=== PATIENT | female | born 1955 | race Caucasian/White ===

== ENCOUNTER 2018-10-05 09:53 | Inpatient (IN) | payer OTHER ==
[~2018-10-05] VITALS: Ht 157.5 cm; Wt 56.7 kg
[2018-10-05] VITALS (10 sets, daily range): BP systolic 132–151; BP diastolic 64–82
--- NOTE | 2018-10-05 | NUR ---
RN OPEN NOTES RECEIVED PATIENT AWAKE IN BED WITH FAMILY AT BEDSIDE. A/O X4. NO SIGNS OF DISTRESS OR DISCOMFORT. BREATHING EVEN AND UNLABORED. STATES PAIN 4/10 AND TOLERABLE AT THIS TIME. PATIENT S/P 1 UNIT PRBC BLOOD TRANSFUSION WITH NO SIGNS OF ADVERSE REACTION AT THIS TIME. HAS IV ACCESS IN LAC AND RAC WITH NS INFUSING, NO SIGNS OF REDNESS OR INFILTRATION. HAS F/C INTACT DRAINING CLEAR YELLOW FLUID. BED IN LOW LOCKED POSITION WITH SIDE RAILS X2. CALL LIGHT WITHIN REACH. WILL CONTINUE TO MONITOR. Addendum: 10/06/18 at 0119 by HIRA ENRIQUEZ RN ERROR: WRONG TIME DOCUMENT
--- NOTE | 2018-10-05 10:00 | NUR ---
aaox3, BIBA RA 878 "GLF from work slipped on the floor and now c/o pain on R hip". RR is even and unlabored with nad noted. Skin is warm and dry. Placed on the monitor. Awaiting md for eval.
--- NOTE | 2018-10-05 10:01 | NUR ---
DR CALDWELL AT BEDSIDE
[2018-10-05] MEDS ORDERED: ONDANSETRON HCL/PF 4 MG/2 ML VIAL ONE (10:06)
[2018-10-05] MEDS ORDERED: MORPHINE SULFATE INJ 2 MG/ML DISP.SYRIN ONE (10:06)
[2018-10-05 10:20] LABS: BASOPHILS % (AUTO) 0.2 % (0.0-2.0); EOSINOPHILS % (AUTO) 0.3 % (0.0-6.0); HEMATOCRIT 22 % (33-45); LYMPHOCYTES # (AUTO) 1.8 /CMM (0.8-4.8); LYMPHOCYTES % (AUTO) 16.6 % (20.0-44.0); MEAN CORPUSCULAR HGB CONC 26 g/dl (31.0-36.0); MEAN CORPUSCULAR VOLUME 52 fL (82-100); MONOCYTES # (AUTO) 0.6 /CMM (0.1-1.30); NEUTROPHILS # (AUTO) 8.5 /CMM (1.8-8.9); NEUTROPHILS % (AUTO) 77.9 % (43.0-81.0); PLATELET COUNT (AUTO) 463 /CMM (150-450); RED BLOOD CELL COUNT(AUTO) 4.27 MIL/uL (4.0-5.2)
[2018-10-05 10:22] LABS: HEMOGLOBIN 5.7 g/dL (11.5-14.8)
[2018-10-05 10:24] LABS: CALCIUM, SERUM 8.5 mg/dL (8.5-10.1); CREATININE 0.6 mg/dL (0.6-1.3); POTASSIUM 3.5 mmol/L (3.5-5.1)
[2018-10-05] MEDS ORDERED: ONDANSETRON HCL/PF - ER 4 MG/2 ML VIAL IV ONE (10:30)
[2018-10-05] MEDS ORDERED: MORPHINE SULFATE INJ 2 MG/ML DISP.SYRIN IV ONE (10:30)
[2018-10-05 11:36] LABS: BAND % (MANUAL) 1 % (0.0-5.0); LYMPHOCYTES % (MANUAL) 5 % (16-48); MONOCYTES % (MANUAL) 4 % (0-11.0); NEUTROPHILS % (MANUAL) 90 (42-76)
--- NOTE | 2018-10-05 11:43 | NUR ---
ADMIT TO ROOM 324-2 TELE DX HIP FX, ANEMIA ACCEPTING STEVAN STOUT NP
--- NOTE | 2018-10-05 11:51 | NUR ---
PT SIGNED CONSENT FOR BLOOD TRANSFUSION
[2018-10-05] MEDS ORDERED: MAG HYDROX/AL HYDROX/SIMETH 30 ML UDC PO PRN (12:00)
[2018-10-05] MEDS ORDERED: MAGNESIUM HYDROXIDE 30 ML UDC PO PRN (12:00)
[2018-10-05] MEDS ORDERED: ACETAMINOPHEN 325 MG TABLET PO PRN (12:00)
[2018-10-05] MEDS ORDERED: Z GUARD REMEDY 2 OZ OINT TP PRN (12:00)
[2018-10-05] MEDS ORDERED: ONDANSETRON HCL/PF 4 MG/2 ML VIAL IVP PRN (12:00)
--- NOTE | 2018-10-05 12:01 | NUR ---
REPORT GIVEN TO CHARLES FRANCIS OF TELE UNIT
[2018-10-05 12:18] LABS: IRON, SERUM 7 ug/dl (50-175); TOTAL IRON BINDING CAPACITY 465 ug/dl (250-450)
--- NOTE | 2018-10-05 12:30 | NUR ---
mmi teacheremergency vehicle technician Notes Received patient from ED in stable condition via gurney, Patient currently awake, resting in bed. Semi-Fowlers position, supine. Alert and oriented x3, able to make needs known. No complaints of shortness of breath or chest pain at this time. Respirations even and unlabored on room air, no acute distress noted. External youth nutritional monitor in place: currently sinus tachycardia at 102 bpm. Peripheral IV to the right AC 20 gauge, intact, patent and saline locked. Skin assessment completed, no skin issues identified. NPO as ordered. Updated patient on current plan of care and safety measures. Safety and fall precautions in place: bed in lowest and locked position, side rails up x2, bed alarm on, call light and personal possessions within reach. Oriented patient to room and safety measures, verbalized understanding. Patient currently clean, dry and comfortable. Admission orders received and will be carried out. Personal belongings accounted for at bedside, family to take some personal items home (noted on form). Family present at bedside. Will continue to monitor and intervene as needed.
--- NOTE | 2018-10-05 12:31 | NUR ---
printed circuit boards plasma etcherbuttonhole machine operator Notes Received patient from ED in stable condition via gurney, Patient currently awake, resting in bed. Semi-Fowlers position, supine. Alert and oriented x3, able to make needs known. No complaints of shortness of breath or chest pain at this time. Respirations even and unlabored on room air, no acute distress noted. External telephonic nurse case manager in place: currently sinus tachycardia at 102 bpm. Peripheral IV to the right AC 20 gauge, intact, patent and saline locked. Skin assessment completed, no skin issues identified. NPO as orderded. Updated patient on current plan of care and safety measures. Safety and fall precautions in place: bed in lowest and locked position, side rails up x2, bed alarm on, call light and personal possessions within reach. Oriented patient to room and safety measures, verbalized understanding. Patient currently clean, dry and comfortable. Admission orders received and will be carried out. Personal belongings accounted for at bedside, family to take some personal items home (noted on form). Family present at bedside. Will continue to monitor and intervene as needed.
[2018-10-05] MEDS: MORPHINE SULFATE INJ 2 MG/ML DISP.SYRIN IV PRN ×3 (12:43→22:32)
[2018-10-05 13:05] LABS: FERRITIN 3 ng/mL (8-388)
[2018-10-05] MEDS ORDERED: SOD FERRIC GLUC 125 MG in IV NS 0.9% 100 ML IV SCH ×2 (14:00→21:00)
--- NOTE | 2018-10-05 14:55 | NUR ---
Pre-transfusion vital signs taken. Patient stable. Monitoring accordingly during transfusion. PENNY Canales as second RN verification.
--- NOTE | 2018-10-05 15:56 | NUR ---
Monitoring during PRBC transfusion for adverse reactions. Vital signs stable. No back pain or nausea/vomiting noted. Family present at bedside.
[2018-10-05] MEDS: DOCUSATE SODIUM 100 MG CAPSULE PO SCH (17:00)
[2018-10-05] MEDS: PANTOPRAZOLE 40 MG VIAL IV SCH (18:00)
--- NOTE | 2018-10-05 19:00 | NUR ---
Transfusion completed. 1 unit PRBC's infused with no adverse reactions. Vital signs stable. No acute changes. Will endorse to market research specialist RN for continuity of care.
--- NOTE | 2018-10-05 19:10 | NUR ---
RN OPEN NOTES RECEIVED PATIENT AWAKE IN BED WITH FAMILY AT BEDSIDE. A/O X4. NO SIGNS OF DISTRESS OR DISCOMFORT. BREATHING EVEN AND UNLABORED. STATES PAIN 4/10 AND TOLERABLE AT THIS TIME. PATIENT S/P 1 UNIT PRBC BLOOD TRANSFUSION WITH NO SIGNS OF ADVERSE REACTION AT THIS TIME. HAS IV ACCESS IN LAC AND RAC WITH NS INFUSING, NO SIGNS OF REDNESS OR INFILTRATION. HAS F/C INTACT DRAINING CLEAR YELLOW FLUID. BED IN LOW LOCKED POSITION WITH SIDE RAILS X2. CALL LIGHT WITHIN REACH. WILL CONTINUE TO MONITOR.
--- NOTE | 2018-10-05 22:32 | NUR ---
RN NOTES ADMINISTERED MORPHINE 2MG ORDERED FOR PAIN 8/10 IN R HIP. NO COMPLICATIONS NOTED. WILL CONTINUE TO MONITOR.
[2018-10-06] VITALS (13 sets, daily range): BP systolic 130–152; BP diastolic 64–85
[2018-10-06 06:26] LABS: HEMATOCRIT 26 % (33-45); HEMOGLOBIN 7.4 g/dL (11.5-14.8); LYMPHOCYTES % (AUTO) 5.8 % (20.0-44.0); MEAN CORPUSCULAR HGB CONC 29 g/dl (31.0-36.0); MEAN CORPUSCULAR VOLUME 56 fL (82-100); MONOCYTES # (AUTO) 1.1 /CMM (0.1-1.30); MONOCYTES % (AUTO) 6.3 % (2.0-12.0); NEUTROPHILS # (AUTO) 14.8 /CMM (1.8-8.9); NEUTROPHILS % (AUTO) 87.9 % (43.0-81.0); PLATELET COUNT (AUTO) 393 /CMM (150-450); RED BLOOD CELL COUNT(AUTO) 4.54 MIL/uL (4.0-5.2); WHITE BLOOD COUNT (AUTO) 16.9 K/uL (4.3-11.0)
--- NOTE | 2018-10-06 06:30 | NUR ---
RN CLOSING NOTES PATIENT RESTING IN BED. A/O X4. NO SIGNS OF DISTRESS OR DISCOMFORT. BREATHING EVEN AND UNLABORED. HAS IV ACCESS IN LAC AND RAC WITH NS INFUSING, NO SIGNS OF REDNESS OR INFILTRATION. HAS F/C INTACT DRAINING CLEAR YELLOW FLUID. ALL NEEDS MET. NO SIGNIFICANT CHANGES THROUGH THE NIGHT. BED IN LOW LOCKED POSITION WITH SIDE RAILS X2. CALL LIGHT WITHIN REACH. WILL ENDORSE TO AM SHIFT FOR CALVIN.
[2018-10-06 07:37] LABS: OCCULT BLOOD STOOL NEGATIVE (NEGATIVE)
[2018-10-06 07:38] LABS: POTASSIUM 4.2 mmol/L (3.5-5.1)
[2018-10-06 07:40] LABS: CALCIUM, SERUM 8.4 mg/dL (8.5-10.1); MAGNESIUM 1.9 mg/dL (1.8-2.4)
[2018-10-06 07:41] LABS: CREATININE 0.5 mg/dL (0.6-1.3); PHOSPHORUS 3.2 mg/dL (2.5-4.9)
--- NOTE | 2018-10-06 08:00 | NUR ---
MS RN NOTES Received Patient comfortable, awake and resting in bed. A/O x 4. VS stable with no acute distress. Breathing even and labored on room air with no signs and symptoms of respiratory distress. Patient stated pain level of 7/10 on RIGHT HIP. Will intervene as ordered. 20g PIV on RAC with IVF NS infusing at 50ml/hr. 22g PIV saline lock on LAC. No pain, redness nor swelling on IV sites. IV sites flushes well. Cantor Cath in place and operational. Clear, yellow urine output noted. Safety precautions applied. Bed locked and in lowest position with side rails up x 2. Call light within reach. Will continue to monitor.
[2018-10-06] MEDS: PANTOPRAZOLE 40 MG VIAL IV SCH (08:25)
[2018-10-06] MEDS: IV NS 0.9% 1,000 ML IV PRN (08:27)
[2018-10-06 08:28] LABS: THYROID STIMULATING HORMONE 1.65 uIU/mL (0.358-3.74)
[2018-10-06] MEDS: MORPHINE SULFATE INJ 2 MG/ML DISP.SYRIN IV PRN ×2 (08:28→19:36)
--- NOTE | 2018-10-06 08:28 | NUR ---
MS RN NOTES Administered Morphine 2mg IV PRN per Patients request. Patient stated pain level of 7/10 on RIGHT HIP. VS stable. Will continue to monitor.
[2018-10-06] MEDS: DOCUSATE SODIUM 100 MG CAPSULE PO SCH ×2 (09:00→16:37)
[2018-10-06] MEDS: HYDROCODONE/APAP 5/325MG 1 EACH TABLET PO PRN ×2 (10:29→21:33)
--- NOTE | 2018-10-06 10:29 | NUR ---
MS RN NOTES Administered [place] 5-325mg PO PRN per Patients request. Patient stated pain level of 7/10 on RIGHT HIP. Will continue to monitor.
[2018-10-06] MEDS ORDERED: FENTANYL PF 250MCG/5ML AMPUL ONE ×2 (13:34→13:35)
[2018-10-06] MEDS ORDERED: MIDAZOLAM HCL 2 MG/2ML VIAL ONE (13:34)
[2018-10-06] MEDS ORDERED: ROCURONIUM BROMIDE 50 MG/5 ML ONE (13:35)
[2018-10-06] MEDS ORDERED: SEVOFLURANE 250 ML BOTTLE IH ONE (13:49)
[2018-10-06] MEDS ORDERED: BUPIVACAINE 0.25% 75 MG/30 ML VIAL ONE ×2 (14:20→14:23)
[2018-10-06] MEDS ORDERED: BACITRACIN 50000 UNITS/VIAL ONE (14:20)
[2018-10-06] MEDS ORDERED: BUPIVACAINE 0.5 % PF 150 MG/30 ML VIAL ONE (14:54)
--- NOTE | 2018-10-06 15:59 | NUR ---
MS RN NOTES PATIENT RETURNED FROM OR IN STABLE CONDITION. BLOOD TRANSFUSION COMPLETED AT THE OR. PATIENT DENIES ANY PAIN. WILL CONTINUE TO MONITOR.
[2018-10-06] MEDS: SOD FERRIC GLUC 125 MG in IV NS 0.9% 100 ML IV SCH (16:42)
--- NOTE | 2018-10-06 19:23 | NUR ---
MS RN CLOSING NOTES Patient comfortable and asleep in bed. A/O x 4. VS stable with no acute distress. Breathing even and labored on room air with no signs and symptoms of respiratory distress. Denies pain. PIV on RAC with IVF NS infusing at 50ml/hr. 22g PIV saline lock on LAC. No pain, redness nor swelling on IV sites. IV sites flushes well. Cantor Cath in place and operational. Clear, yellow urine output noted. Safety precautions applied. Bed locked and in lowest position with side rails up x 2. Call light within reach. Will continue to monitor.
--- NOTE | 2018-10-06 19:30 | NUR ---
RN MS OPENING NOTES RECEIVED BEDSIDE REPORT, PT RECEIVED IN BED, AWAKE ALERT ORIENTED X4, BREATHING EVEN AND UNLABORED ON ROOM AIR. COMPLAINTS OF HIP PAIN 6/10, ASKING FOR MORPHINE, WILL ADMINISTER PRESCRIBED. IV ACCESS ON THE RAC G20 AND LAC G22 WITH NS @ 50ML/HR. SURGICAL DRESSING IN PLACE ON THE R HIP. BED IN LOWEST LOCKED POSITION, CALL LIGHT WITHIN REACH AT ALL TIMES, WILL CONTINUE TO MONITOR.
[2018-10-06] MEDS: ANCEF 1 GM/50 ML D5W IV SCH ×2 (21:34)
[2018-10-06 22:35] LABS: HEMOGLOBIN 7.8 g/dL (11.5-14.8)
[2018-10-07] MEDS ORDERED: MAG HYDROX/AL HYDROX/SIMETH 30 ML UDC ONE (04:28)
[2018-10-07] MEDS ORDERED: DICYCLOMINE HCL 10 MG CAPSULE PO ONE (04:28)
[2018-10-07] MEDS: ANCEF 1 GM/50 ML D5W IV SCH ×4 (04:34→12:00)
[2018-10-07] MEDS: MORPHINE SULFATE INJ 2 MG/ML DISP.SYRIN IV PRN ×2 (04:34→16:02)
[2018-10-07] MEDS: IV NS 0.9% 1,000 ML IV PRN (04:39)
--- NOTE | 2018-10-07 06:20 | NUR ---
RN MS CLOSING NOTES PT REMAINS IN BED, AWAKE ALERT ORIENTED X4, BREATHING EVEN AND UNLABORED ON ROOM AIR. REPORTS PAIN AT A TOLERABLE LEVEL AT THE MOMENT. IV ACCESS ON THE R WRIST 20G WITH NS @ 50ML/HR. SURGICAL DRESSING IN PLACE ON THE R HIP. BED IN LOWEST LOCKED POSITION, CALL LIGHT WITHIN REACH AT ALL TIMES, WILL ENDORSE TO DAY NURSE FOR CALVIN
[2018-10-07 06:55] LABS: BASOPHILS % (AUTO) 0.2 % (0.0-2.0); HEMATOCRIT 28 % (33-45); HEMOGLOBIN 8.3 g/dL (11.5-14.8); LYMPHOCYTES # (AUTO) 0.9 /CMM (0.8-4.8); LYMPHOCYTES % (AUTO) 6.6 % (20.0-44.0); MEAN CORPUSCULAR HGB CONC 30 g/dl (31.0-36.0); MEAN CORPUSCULAR VOLUME 62 fL (82-100); MONOCYTES # (AUTO) 1.1 /CMM (0.1-1.30); MONOCYTES % (AUTO) 7.3 % (2.0-12.0); NEUTROPHILS # (AUTO) 12.3 /CMM (1.8-8.9); NEUTROPHILS % (AUTO) 85.9 % (43.0-81.0); PLATELET COUNT (AUTO) 274 /CMM (150-450); RED BLOOD CELL COUNT(AUTO) 4.48 MIL/uL (4.0-5.2); WHITE BLOOD COUNT (AUTO) 14.3 K/uL (4.3-11.0)
[2018-10-07 07:01] LABS: ALBUMIN 2.3 g/dL (3.4-5.0); BILIRUBIN,TOTAL 0.8 mg/dL (0.2-1.0); CALCIUM, SERUM 8.1 mg/dL (8.5-10.1); CREATININE 0.6 mg/dL (0.6-1.3); MAGNESIUM 1.9 mg/dL (1.8-2.4); PHOSPHORUS 2.9 mg/dL (2.5-4.9); TOTAL PROTEIN, SERUM 5.4 g/dL (6.4-8.2)
[2018-10-07 08:00] VITALS: BP 119/70
--- NOTE | 2018-10-07 08:00 | NUR ---
MS RN NOTES PATIENT ALERT, ORIENTED X3 IN BED. NO SOB OR ACUTE DISTRESS NOTED. PATIENT REPORTS PAIN 7/10. PERIPHERAL IV INTACT PATENT. BED IN LOW LOCKED POSITION. WILL MANGE PAIN WITH MEDICATIONS. WILL CONTINUE TO MONITOR. PATIENT WAITING FOR PT EVAL.
[2018-10-07 08:07] LABS: AFP, TUMOR MARKER 11.6 ng/mL (0.0-8.3)
[2018-10-07] MEDS: HYDROCODONE/APAP 5/325MG 1 EACH TABLET PO PRN ×3 (08:35→23:32)
[2018-10-07] MEDS: PANTOPRAZOLE 40 MG VIAL IV SCH (08:36)
[2018-10-07 10:25] LABS: BAND % (MANUAL) 1 % (0.0-5.0); LYMPHOCYTES % (MANUAL) 13 % (16-48); MONOCYTES % (MANUAL) 4 % (0-11.0); NEUTROPHILS % (MANUAL) 82 (42-76)
--- NOTE | 2018-10-07 10:30 | NUR ---
MS RN NOTES RECEIVED CALL FROM LAB STATING PATIENT IS POSITIVE FOR C-DIFF. DR. GONZALEZ MADE AWARE WILL PLACE ORDERS IN THE CHART.
--- NOTE | 2018-10-07 11:03 | NUR ---
MS RN NOTES REPORT GIVEN TO CINDY FRANCIS FOR CALVIN. PATIENT STABLE IN BED.
[2018-10-07] MEDS: VANCOMYCIN HCL 125 MG/2.5 ML ORAL.SUSP PO SCH ×3 (11:54→23:28)
[2018-10-07] MEDS: SOD FERRIC GLUC 125 MG in IV NS 0.9% 100 ML IV SCH (13:20)
[2018-10-07 16:00] VITALS: BP 127/69
--- NOTE | 2018-10-07 16:00 | NUR ---
rn notes Cantor catheter removed.
[2018-10-07] MEDS: METRONIDAZOLE 500MG/ NS 100ML 500 MG in PREMIX 1 EA IV SCH (17:53)
--- NOTE | 2018-10-07 18:46 | NUR ---
RN CLOSING NOTES PT AWAKE AND RESTING IN BED. NO COMPLAINTS OF PAIN, SOB OR DISTRESS AT THIS TIME. PT PAIN MANAGED WITH PRN NORCO AND MORPHINE. PT WALKED WITH PT TODAY. PT HAS BSC. PT HAS A RIGHT WRIST #20 INTACT AND RUNNING NS @50 ML/HR. PT TOLERATING FLUIDS WELL. SAFETY PRECAUTIONS IN PLACE, BED IN LOWEST LOCKED POSITION, X2 SIDE RAILS UP AND CALL LIGHT WITHIN REACH. WILL ENDORSE TO DIAGNOSTIC TECHNOLOGIST NURSE FOR CONTINUITY OF CARE.
--- NOTE | 2018-10-07 19:05 | NUR ---
RN MS OPENING NOTES RECEIVED PATIENT IN BED AWAKE ALERT AND ORIENTED X4, RESPIRATIONS EVEN AND UNLABORED WITH EQUAL RISE AND FALL OF CHEST, DENIES ANY PAIN OR DISCOMFORT, IV SITE TO RIGHT WRIST #20 INTACT AND PATENT, NO REDNESS, NO INFILTRATION PRESENT,IVF RUNNING ORDERED, ORIENTED TO STAFF AND CALL LIGHT AND KEPT WITHIN REACH , SAFETY PRECAUTIONS IN PLACE, LOW BED AND LOCKED, DRESSING TO RIGHT HIP C/D/I. DISCUSSED PLAN OF CARE WITH PATIENT, S/P CHIN CATHETER REMOVAL WILL CONTINUE TO MONITOR FOR VOID. ALL NEEDS ATTENDED AT THIS TIME, WILL CONTINUE TO MONITOR AND ATTEND TO NEEDS.
[2018-10-07 20:00] VITALS: BP 131/70
[2018-10-07] MEDS: ENOXAPARIN SODIUM 40 MG/0.4 ML DISP.SYRIN SQ SCH (21:00)
--- NOTE | 2018-10-07 21:37 | NUR ---
RN MS NOTES LOVENOX HELD PER DR. MOORE INSTRUCTION GIVE IF H/H ABOVE 10 HBG IS 8.3
--- NOTE | 2018-10-07 23:32 | NUR ---
RN MS NOTES PATIENT COMPLAINT OF PAIN TO RIGHT HIP, 7/10 ACHING REQUESTING FOR PAIN MEDICATION NORCO VS WNL NORCO PRN GIVEN WILL CONTINUE TO MONITOR FOR EFFECTIVENESS. PATIENT HAD X 1 VOID SMALL WILL CONTINUE TO MONITOR.
[2018-10-08] MEDS: IV NS 0.9% 1,000 ML IV PRN (04:45)
[2018-10-08] MEDS: METRONIDAZOLE 500MG/ NS 100ML 500 MG in PREMIX 1 EA IV SCH ×3 (04:45→21:31)
[2018-10-08] MEDS: MORPHINE SULFATE INJ 2 MG/ML DISP.SYRIN IV PRN (04:59)
--- NOTE | 2018-10-08 04:59 | NUR ---
RN MS NOTES PATIENT COMPLAINT OF PAIN TO RIGHT HIP 12/31 REQUESTED FOR MORPHINE. VS WNL 110/59,18,70 MORPHINE PRN GIVEN ORDERED WILL CONTINUE TO MONITOR FOR EFFECTIVENESS OFFERED BED SIDE COMMODE PATIENT REQUESTING FOR BED WARD , BED WARD GIVEN.
[2018-10-08] MEDS: VANCOMYCIN HCL 125 MG/2.5 ML ORAL.SUSP PO SCH ×4 (05:01→23:47)
--- NOTE | 2018-10-08 06:00 | NUR ---
RN MS NOTES PATIENT ATTEMPTED TO VOID X 2 DURING SHIFT NOTED LITTLE OUTPUT HOWEVER PATIENT WANTED TO TRY BED WARD UPON ASSESSMENT NOTED DISTENTION BLADDER SCAN DONE NOTED GREATER THAN 600ML , MADE AWARE WITH NEW ORDERS AND STRAIGHT CATH. PATIENT MADE AWARE.
[2018-10-08] MEDS: HYDROCODONE/APAP 5/325MG 1 EACH TABLET PO PRN ×4 (06:30→22:41)
--- NOTE | 2018-10-08 06:30 | NUR ---
RN MS NOTES PATIENT COMPLAINT OF PAIN TO RIGHT LEG 01/31 REQUESTING FOR NORCO VS WNL NORCO PRN GIVEN WILL CONTINUE TO MONITOR FOR EFFECTIVENESS. STRAIGHT CATHETER DONE ORDERED 700ML OUTPUT, ABDOMEN IS SOFT NON DISTENDED, PATIENT FELT RELIEF.
[2018-10-08 06:54] LABS: BASOPHILS % (AUTO) 0.3 % (0.0-2.0); EOSINOPHILS % (AUTO) 0.1 % (0.0-6.0); HEMATOCRIT 26 % (33-45); HEMOGLOBIN 7.6 g/dL (11.5-14.8); LYMPHOCYTES # (AUTO) 1.3 /CMM (0.8-4.8); LYMPHOCYTES % (AUTO) 11.9 % (20.0-44.0); MEAN CORPUSCULAR HGB CONC 30 g/dl (31.0-36.0); MEAN CORPUSCULAR VOLUME 62 fL (82-100); MONOCYTES # (AUTO) 0.9 /CMM (0.1-1.30); MONOCYTES % (AUTO) 8.3 % (2.0-12.0); NEUTROPHILS # (AUTO) 8.8 /CMM (1.8-8.9); NEUTROPHILS % (AUTO) 79.4 % (43.0-81.0); PLATELET COUNT (AUTO) 268 /CMM (150-450); RED BLOOD CELL COUNT(AUTO) 4.18 MIL/uL (4.0-5.2); WHITE BLOOD COUNT (AUTO) 11.1 K/uL (4.3-11.0)
[2018-10-08 07:04] LABS: ALBUMIN 1.9 g/dL (3.4-5.0); BILIRUBIN,TOTAL 0.6 mg/dL (0.2-1.0); CALCIUM, SERUM 8.2 mg/dL (8.5-10.1); CREATININE 0.5 mg/dL (0.6-1.3); POTASSIUM 3.8 mmol/L (3.5-5.1); TOTAL PROTEIN, SERUM 5.1 g/dL (6.4-8.2)
--- NOTE | 2018-10-08 07:14 | NUR ---
RN MS CLOSING NOTES PATIENT IN BED AWAKE ALERT AND ORIENTED X4, RESPIRATIONS EVEN AND UNLABORED WITH EQUAL RISE AND FALL OF CHEST, DENIES ANY PAIN OR DISCOMFORT, IV SITE TO RIGHT WRIST #20 INTACT AND PATENT, NO REDNESS, NO INFILTRATION PRESENT,IVF RUNNING ORDERED, CALL LIGHT KEPT WITHIN REACH , SAFETY PRECAUTIONS IN PLACE, LOW BED AND LOCKED, DRESSING TO RIGHT HIP C/D/I. DISCUSSED PLAN OF CARE WITH PATIENT. ALL NEEDS ATTENDED AT THIS TIME, WILL CONTINUE TO MONITOR AND ENDORSE TO NEXT SHIFT, ABDUCTOR PILLOW IN PLACE.
--- NOTE | 2018-10-08 07:30 | NUR ---
MS RN OPENING NOTE RECEIVED PT IN BED, ALERT AND ORIENTED X4. DENIES CHEST PAIN, SOB, N/V. RATES PAIN IN THE RIGHT HIP 3/10 AND TOLERABLE AT THIS TIME. BREATHING IS EVEN AND UNLABORED ON ROOM AIR. NO ACUTE DISTRESS NOTED AT THIS TIME. RIGHT WRIST #20G IV IS INFUSING NS @ 50ML/HR WITHOUT REDNESS OR SWELLING. PT IS ON SCHEDULE FOR POSSIBLE EGD WITH DR. STOCK TODAY AT 0830. NPO STATUS MAINTAINED, CONSENTS OBTAINED AND PLACED IN CHART, CHECKLIST PENDING. CONTACT PRECAUTIONS MAINTAINED. BED IS LOCKED AND IN LOWEST POSITION, SIDE RAILS UPX2, BED ALARM ON, CALL LIGHT AND POSSESSIONS WITHIN REACH.
[2018-10-08 08:00] VITALS: BP 110/61
[2018-10-08] MEDS: ENOXAPARIN SODIUM 40 MG/0.4 ML DISP.SYRIN SQ SCH ×2 (08:18→21:00)
--- NOTE | 2018-10-08 08:22 | NUR ---
MS RN PT OFF UNIT PT OFF UNIT FOR EDG WITH DR. STOCK. CONSENTS SIGNED AND PLACED IN CHART. OR CHECKLIST COMPLETED. RIGHT WRIST #20G IV IS PATENT, CLEAN, DRY AND INTACT.
[2018-10-08] MEDS ORDERED: ANESTHESIA TRAY IN PYXIS 1 EA TRAY MC ONE (08:50)
[2018-10-08 09:40] VITALS: BP 126/67
--- NOTE | 2018-10-08 09:40 | NUR ---
MS RN PT BACK ON UNIT PT BACK FROM EDG WITH DR. STOCK POST OP ORDERS RECEIVED AND INITIATED, VS BEGAN PER PROTOCOL AND WITHIN BASELINE AT THIS TIME. PT PENDING UPPER GI X RAY WITH GASTROGRAFIN.
[2018-10-08] MEDS ORDERED: DIATR MEGLU/DIATRIZOATE SODIUM 120 ML BOTTLE (GASTROGRAPHIN) ONE ×2 (09:48→10:59)
[2018-10-08] MEDS: PANTOPRAZOLE 40 MG VIAL IV SCH (09:50)
[2018-10-08 09:53] LABS: APPEARANCE,URINE CLEAR (CLEAR); BILIRUBIN,URINE NEGATIVE (NEGATIVE); BLOOD, URINE 3+ Ery/uL (NEGATIVE); COLOR,URINE YELLOW (YELLOW); KETONES,URINE NEGATIVE (NEGATIVE); LEUKOCYTE ESTERASE ,URINE NEGATIVE (NEGATIVE); NITRITE, URINE NEGATIVE (NEGATIVE); PH,URINE 5.5 (5.0-8.0); PROTEIN,URINE NEGATIVE (NEGATIVE); UGLUCOSE NEGATIVE (NEGATIVE); UROBILINOGEN,URINE 0.2 EU/dL (0.2)
[2018-10-08 10:13] LABS: BACTERIA,URINE Few /HPF (None Seen); SQUAMOUS EPITHELIAL CELL,UR Few /HPF (None Seen); WBC,URINE 0-2 /HPF (0-3)
--- NOTE | 2018-10-08 10:21 | NUR ---
MS RN PT OFF UNIT PT OFF UNIT FOR UPPER GI X RAY WITH GASTROGRAFIN
--- NOTE | 2018-10-08 12:15 | NUR ---
MS RN PT BACK ON UNIT PT BACK FROM UPPER GI XRAY WITH GASTROGRAFIN.
--- NOTE | 2018-10-08 14:51 | NUR ---
PATIENT DRANK 480ML GASTROGRAFIN FOR UGI STUDY. CT CHEST ABDOMEN PELVIS TO BE DONE TOMORROW WHEN ORAL CONTRAST HAS BEEN ABSORBED.
[2018-10-08] MEDS: SOD FERRIC GLUC 125 MG in IV NS 0.9% 100 ML IV SCH (14:54)
--- NOTE | 2018-10-08 15:00 | NUR ---
MS RN NOTE PER AMINAH IN RADIOLOGY, BECAUSE PT HAD APPROXIMATELY 50CC OF CONTRAST AGENT TODAY WITH UPPER GI X RAY SERIES, IT IS NOT SAFE FOR PT TO RECEIVE ADDITIONAL CONTRAST TODAY FOR CT AND THEY WILL SCHEDULE IT FOR TOMORROW.
--- NOTE | 2018-10-08 15:01 | NUR ---
MS RN NOTE BLADDER SCAN DONE. 268ML URINE NOTED WITHOUT DISTENTION. PT DENIES URGENCY, PAIN, AT THIS TIME. STATED SHE WAS ABLE TO URINATE "A LITTLE" EARLIER INTO BSC. WILL RE-CHECK AND CONTINUE TO MONITOR.
[2018-10-08 16:00] VITALS: BP 122/68
--- NOTE | 2018-10-08 18:00 | NUR ---
MS RN NOTE BLADDER SCAN DONE WITH 289ML URINE. PT DENIES URGENCY, HESITANCY, PAIN. NO DISTENTION PRESENT.
--- NOTE | 2018-10-08 18:03 | NUR ---
MS RN NOTE INFORMED BY VICE PRESIDENT OF MARKETING THAT ABDUCTOR WEDGE PILLOW SOILED. CALLED [employer] AND LEFT VOICEMAIL REQUESTING A NEW ONE, AWAITING RECEIPT.
--- NOTE | 2018-10-08 18:09 | NUR ---
MS RN NOTE RIGHT HIP SURGICAL DRESSING CHANGED BY DAKOTA LARKIN.
--- NOTE | 2018-10-08 18:11 | NUR ---
MS RN CLOSING NOTE PT IN BED, ALERT AND ORIENTED X4. DENIES CHEST PAIN, SOB, N/V. RATES PAIN IN THE RIGHT HIP 5/10, ADMINISTERED NORCO 5/325MG PO @ 1741. BREATHING IS EVEN AND UNLABORED ON ROOM AIR. NO ACUTE DISTRESS NOTED AT THIS TIME. ABDUCTOR PILLOW AND SCDS IN PLACE. NEUROVASCULAR STATUS INTACT. SURGICAL DRESSING TO THE RIGHT HIP CHANGED TODAY BY DAKOTA FLOWERS AND IS CLEAN, DRY AND INTACT. RIGHT WRIST #20G IV IS INFUSING NS @ 50ML/HR WITHOUT REDNESS OR SWELLING. ADLS PROVIDED AND PT ASSISTED TO TURN AND REPOSITION Q2H FOR THE DURATION OF THE SHIFT. ALL NEEDS ATTENDED TO, CONTACT PRECAUTIONS MAINTAINED. BED IS LOCKED AND IN LOWEST POSITION, SIDE RAILS UPX2, BED ALARM ON, CALL LIGHT AND POSSESSIONS WITHIN REACH. WILL ENDORSE TO GREEN CHAIN OFFBEARER NURSE FOR CONTINUITY OF CARE.
--- NOTE | 2018-10-08 19:05 | NUR ---
RN MS OPENING NOTES RECEIVED PATIENT IN BED AWAKE ALERT AND ORIENTED X4, RESPIRATIONS EVEN AND UNLABORED WITH EQUAL RISE AND FALL OF CHEST, DENIES ANY PAIN OR DISCOMFORT, IV SITE TO RIGHT WRIST #20 INTACT AND PATENT, NO REDNESS, NO INFILTRATION PRESENT,IVF RUNNING ORDERED, ORIENTED TO STAFF AND CALL LIGHT AND KEPT WITHIN REACH , SAFETY PRECAUTIONS IN PLACE, LOW BED AND LOCKED, DRESSING TO RIGHT HIP C/D/I. DISCUSSED PLAN OF CARE WITH PATIENT, S/P CHIN CATHETER REMOVAL WILL CONTINUE TO MONITOR FOR VOID AND RETENTION , ENCOURAGED TO VOID, WILL BLADDER SCAN. ALL NEEDS ATTENDED AT THIS TIME, WILL CONTINUE TO MONITOR AND ATTEND TO NEEDS. REMAINS COMFORTABLE AT THIS TIME.
[2018-10-08 20:00] VITALS: BP 122/66
--- NOTE | 2018-10-08 22:41 | NUR ---
RN MS NOTES PATIENT COMPLAIN OF PAIN TO RIGHT HIP ACHING 12/31. REQUESTING FOR NORCO VS WNL PRN GIVEN BLADDER SCAN DONE BELOW 400 AT THIS TIME [id number] PATIENT STATES SHE WILL CONTINUE TO TRY TO VOID. WANTS TO WAIT PRIOR TO STRAIGHT CATH. WILL CONTINUE TO MONITOR,
[2018-10-09] MEDS: VANCOMYCIN HCL 125 MG/2.5 ML ORAL.SUSP PO SCH ×3 (05:20→17:02)
[2018-10-09] MEDS: METRONIDAZOLE 500MG/ NS 100ML 500 MG in PREMIX 1 EA IV SCH ×3 (05:20→20:51)
[2018-10-09] MEDS: HYDROCODONE/APAP 5/325MG 1 EACH TABLET PO PRN ×4 (05:21→21:04)
--- NOTE | 2018-10-09 05:21 | NUR ---
RN MS NOTES PATIENT COMPLAIN OF PAIN TO RIGHT HIP REQUESTING FOR NORCO, VS WNL NORCO PRN GIVEN ORDERED C/O PAIN 12/31 ACHING WILL CONTINUE TO MONITOR FOR EFFECTIVENESS. BLADDER SCAN DONE NOTED GREATER THAN 400 RETENTION. 432. PATIENT ATTEMPTED TO VOID ON OWN HOWEVER WAS UNABLE TO , PER STANDING ORDER PERFORMED STERIL STRAIGHT CATHETER. PATIENT HAD RELIEF GREATER THAN 400ML OUTPUT
--- NOTE | 2018-10-09 06:37 | NUR ---
RN MS CLOSING NOTES PATIENT IN BED AWAKE ALERT AND ORIENTED X4, RESPIRATIONS EVEN AND UNLABORED WITH EQUAL RISE AND FALL OF CHEST, DENIES ANY PAIN OR DISCOMFORT, IV SITE TO RIGHT WRIST #20 INTACT AND PATENT, NO REDNESS, NO INFILTRATION PRESENT,IVF RUNNING ORDERED, CALL LIGHT KEPT WITHIN REACH , SAFETY PRECAUTIONS IN PLACE, LOW BED AND LOCKED, DRESSING TO RIGHT HIP C/D/I. AFTER STRAIGHT CATHETER URINE OUTPUT 700ML NADER COLOR , ALL NEEDS ATTENDED AT THIS TIME, WILL CONTINUE TO MONITOR AND ATTEND TO NEEDS. REMAINS COMFORTABLE AT THIS TIME. ABDUCTOR PILLOW IN PLACE, KEPT CLEAN AND DRY, SACRAL AND HEELS ASSESSED NO REDNESS, SKIN IS INTACT.WILL CONTINUE TO MONITOR AND ENDORSE TO NEXT SHIFT.
--- NOTE | 2018-10-09 07:40 | NUR ---
MS RN OPENING NOTE RECEIVED PT IN BED, ALERT AND ORIENTED X4. DENIES CHEST PAIN, SOB, N/V. RATES PAIN IN THE RIGHT HIP 3/10 AND TOLERABLE AT THIS TIME. BREATHING IS EVEN AND UNLABORED ON ROOM AIR. NO ACUTE DISTRESS NOTED AT THIS TIME. RIGHT WRIST #20G IV IS INFUSING NS @ 50ML/HR WITHOUT REDNESS OR SWELLING. DRESSING TO THE RIGHT HIP AND NEUROVASCULAR STATUS IS INTACT. PT IS TO HAVE CT ABD,CHEST,PELVIS WITH ORAL AND IV CONTRAST, CONSENTS SIGNED, INFORMED ILYA IN RADIOLOGY WHO STATED THEY WILL BE UP SHORTLY. NPO STATUS AND CONTACT PRECAUTIONS MAINTAINED.. BED IS LOCKED AND IN LOWEST POSITION, SIDE RAILS UPX2, BED ALARM ON, CALL LIGHT AND POSSESSIONS WITHIN REACH.
[2018-10-09 08:00] VITALS: BP 119/71
[2018-10-09 08:07] LABS: ALBUMIN 1.7 g/dL (3.4-5.0); BILIRUBIN,TOTAL 0.5 mg/dL (0.2-1.0); CALCIUM, SERUM 8.2 mg/dL (8.5-10.1); CREATININE 0.4 mg/dL (0.6-1.3); POTASSIUM 3.9 mmol/L (3.5-5.1); TOTAL PROTEIN, SERUM 4.9 g/dL (6.4-8.2)
[2018-10-09] MEDS: ENOXAPARIN SODIUM 40 MG/0.4 ML DISP.SYRIN SQ SCH ×2 (08:33→20:53)
[2018-10-09] MEDS: PANTOPRAZOLE 40 MG VIAL IV SCH (08:44)
--- NOTE | 2018-10-09 09:10 | NUR ---
MS RN NOTE SPOKE WITH RADIOLOGIST, PT REQUESTING PO NORCO PRIOR TO TRANSFER, NOT DUE UNTIL 0921 WILL ADMINISTER ORDERED. PER NEUROLOGIST THEY WILL PICK PT UP AROUND 1000
--- NOTE | 2018-10-09 09:55 | NUR ---
MS RN NOTE SPOKED WITH CATHIE FROM [facility], TRANSFERRED TO EMERGENCY SERVICE WORKER. CALL BACK NUMBER FOR CATHIE IS [phone].
[2018-10-09] MEDS ORDERED: IOHEXOL-300 100 ML VIAL IV ONE (10:07)
--- NOTE | 2018-10-09 10:07 | NUR ---
MS RN NOTE PT OFF UNIT FOR CT OF THE ABD, CHEST, PELVIS.
--- NOTE | 2018-10-09 10:31 | NUR ---
MS RN NOTE PT BACK ON UNIT FROM CT OF ABD. PELVIS, CHEST
[2018-10-09] MEDS: IV NS 0.9% 1,000 ML IV PRN (12:06)
--- NOTE | 2018-10-09 12:06 | NUR ---
MS RN NOTE RIGHT WRIST PERIPHERAL IV FOUND TO BE INFILTRATED. REMOVED WITH CATHETER TIP INTACT. PT DECLINED ICE PACK AND ELEVATED EXTREMITY ON PILLOW. LEFT HAND #22G IV INSERTED AND IS PATENT, CLEAN, DRY AND INTACT.
--- NOTE | 2018-10-09 13:58 | NUR ---
MS FRANCIS CRITICAL RESULT REPORTED FOLLOWING CT RESULT TO DR. GONZALEZ PER PROTOCOL, PER DR. GONZALEZ FOLLOW UP AND INFORM GI. 1. Asymmetric significant thickening of the distal sigmoid colon highly suggestive of colon cancer. Recommend further evaluation with colonoscopy. Overall evaluation of the pelvic structures are limited due to artifact from left hip arthroplasty.
--- NOTE | 2018-10-09 13:58 | NUR ---
MS RN NOTE INFORMED DR. GONZALEZ REGARDING CT ABD/PELVIS/CHEST RESULTS. PER DR. GONZALEZ, INFORM GI TO CLARIFY IF COLONOSCOPY NEEDED NOW OR IF CAN BE DONE OUTPATIENT 2 WEEKS AFTER D/C.
--- NOTE | 2018-10-09 14:04 | NUR ---
MS RN NOTE INFORMED HELEN King NP FOR DR. STOCK REGARDING CT RESULTS, AWAITING RESPONSE.
[2018-10-09] MEDS: SOD FERRIC GLUC 125 MG in IV NS 0.9% 100 ML IV SCH (15:01)
[2018-10-09 16:00] VITALS: BP 112/66
--- NOTE | 2018-10-09 18:00 | NUR ---
MS RN NOTE BLADDER SCAN DONE SHOWING 288ML OF URINE.
--- NOTE | 2018-10-09 18:10 | NUR ---
MS RN CLOSING NOTE PT IN BED, ALERT AND ORIENTED X4. DENIES CHEST PAIN, SOB, N/V. RATES PAIN IN THE RIGHT HIP 3/10 AND TOLERABLE AT THIS TIME. BREATHING IS EVEN AND UNLABORED ON ROOM AIR. NO ACUTE DISTRESS NOTED AT THIS TIME. ABDUCTOR PILLOW AND SCDS IN PLACE. NEUROVASCULAR STATUS INTACT. SURGICAL DRESSING TO THE RIGHT HIP IS CLEAN, DRY AND INTACT. LEFT HAND #22G IV IS INFUSING NS @ 50ML/HR WITHOUT REDNESS OR SWELLING. ADLS PROVIDED AND PT ASSISTED TO TURN AND REPOSITION Q2H FOR THE DURATION OF THE SHIFT. ALL NEEDS ATTENDED TO, CONTACT PRECAUTIONS MAINTAINED. BED IS LOCKED AND IN LOWEST POSITION, SIDE RAILS UPX2, BED ALARM ON, CALL LIGHT AND POSSESSIONS WITHIN REACH. WILL ENDORSE TO FABRIC AND TEXTILE FACTORY WORKER NURSE FOR CONTINUITY OF CARE.
--- NOTE | 2018-10-09 18:30 | NUR ---
MS RN NOTE PER HELEN King NP FOR DR. STOCK, HOLD D/C PENDING ONCOLOGY CONSULT AND COLONOSCOPY ON SATURDAY.
--- NOTE | 2018-10-09 19:25 | NUR ---
MS RN NOTE RECEIVED PT IN STABLE CONDITION A&O X4, ABLE TO MAKE NEEDS KNOWN. PT CURRENTLY IN BED WITH MD FOR CONSULT. NO SIGNS OF SOB OR DISTRESS, NO C/O PAIN. ALL CURRENT NEEDS MET. ISOLATIONS PRECAUTIONS IN USE. SAFETY PRECAUTIONS IN PLACE: BED LOW, LOCKED, UPPER RAILS UP, AND CALL LIGHT WITHIN REACH. WILL CONT TO MONITOR.
[2018-10-09 20:27] VITALS: BP 133/78
[2018-10-09 20:31] VITALS: BP 133/78
[2018-10-10] MEDS: VANCOMYCIN HCL 125 MG/2.5 ML ORAL.SUSP PO SCH ×4 (00:13→18:33)
[2018-10-10] MEDS: METRONIDAZOLE 500MG/ NS 100ML 500 MG in PREMIX 1 EA IV SCH ×3 (05:08→20:55)
--- NOTE | 2018-10-10 06:29 | NUR ---
MS RN NOTE PT IN STABLE CONDITION A&O X4, ABLE TO MAKE NEEDS KNOWN. PT CURRENTLY IN BED, RESTING EASILY RESPONDS WHEN NAME IS CALLED. NO SIGNS OF SOB OR DISTRESS, NO C/O PAIN. ALL CURRENT NEEDS MET. ISOLATIONS PRECAUTIONS IN USE. SAFETY PRECAUTIONS IN PLACE: BED LOW, LOCKED, UPPER RAILS UP, AND CALL LIGHT WITHIN REACH. WILL CONT TO MONITOR AND ENDORSE TO NEXT SHIFT FOR CALVIN.
--- NOTE | 2018-10-10 07:30 | NUR ---
RN MS NOTES OPENING Patient remains on room air, no sob noted. A/O x4. patient denies pain or any discomfort. Patient's bed at the lowest setting, call light within reach.
[2018-10-10 08:00] VITALS: BP 151/77
[2018-10-10] MEDS: ENOXAPARIN SODIUM 40 MG/0.4 ML DISP.SYRIN SQ SCH ×2 (09:00→20:41)
--- NOTE | 2018-10-10 09:00 | NUR ---
RN MS NOTES Patient's h/h low at this time, last lab was since 10/08.
[2018-10-10] MEDS: HYDROCODONE/APAP 5/325MG 1 EACH TABLET PO PRN ×3 (09:42→18:38)
[2018-10-10] MEDS: PANTOPRAZOLE 40 MG VIAL IV SCH (09:42)
[2018-10-10] MEDS ORDERED: PEG 3350/NA SULF,BICARB,CL/KCL 4,000 ML BOTTLE PO ONE ×2 (13:30)
[2018-10-10] MEDS ORDERED: NA PHOS,M-B/NA PHOS,DI-BA 1 EA ENEMA RC PRN (13:30)
[2018-10-10 16:00] VITALS: BP 112/81
--- NOTE | 2018-10-10 19:00 | NUR ---
MS RN OPENING NOTES Received patient a/o x 4, awake. On RA, no SOB/respiratory distress noted. With R hip wound dressing clean, dry and intact. On going prep for colonoscopy, able to take half of the prep solution. Kept bed low and locked. Commode at bedside. Call light within easy reach. Will continue to monitor accordingly.
[2018-10-10 20:00] VITALS: BP 129/77
[2018-10-10 20:07] VITALS: BP 129/77
--- NOTE | 2018-10-10 20:41 | NUR ---
MS RN NOTES Held Lovenox due to schedule procedure for AM.
[2018-10-10] MEDS: IV NS 0.9% 1,000 ML IV PRN (22:47)
[2018-10-11] MEDS: HYDROCODONE/APAP 5/325MG 1 EACH TABLET PO PRN ×4 (00:16→17:13)
[2018-10-11] MEDS: VANCOMYCIN HCL 125 MG/2.5 ML ORAL.SUSP PO SCH ×3 (00:17→12:16)
[2018-10-11] MEDS: METRONIDAZOLE 500MG/ NS 100ML 500 MG in PREMIX 1 EA IV SCH ×2 (04:04→15:03)
--- NOTE | 2018-10-11 06:58 | NUR ---
MS RN CLOSING NOTES Patient noted able sleep with long intervals throughout the shift. Awaken for due meds and toileting. Still with episodes of watery stool but not yet cleared. Encouraged to continue finish the Golytely. Medicated for pain, noted effective. All nursing needs attended. Call light within easy reach. No new unusualities noted. Endorsed to the next shift.
--- NOTE | 2018-10-11 07:21 | NUR ---
RN MS OPENING NOTES Patient received on room air, no sob noted. Patient lying down comfortably in bed. Patient's bed at lowest setting and call light within reach.
[2018-10-11 08:00] VITALS: BP 115/74
[2018-10-11] MEDS: PANTOPRAZOLE 40 MG VIAL IV SCH (08:23)
[2018-10-11] MEDS: ENOXAPARIN SODIUM 40 MG/0.4 ML DISP.SYRIN SQ SCH (08:51)
--- NOTE | 2018-10-11 08:52 | NUR ---
RN MS NOTES Lovenox not given due to patient's scheduled colonoscopy.
[2018-10-11 10:11] LABS: BASOPHILS % (AUTO) 0.3 % (0.0-2.0); EOSINOPHILS % (AUTO) 1.4 % (0.0-6.0); HEMATOCRIT 25 % (33-45); HEMOGLOBIN 7.9 g/dL (11.5-14.8); LYMPHOCYTES # (AUTO) 0.9 /CMM (0.8-4.8); LYMPHOCYTES % (AUTO) 11.8 % (20.0-44.0); MEAN CORPUSCULAR HGB CONC 31 g/dl (31.0-36.0); MEAN CORPUSCULAR VOLUME 64 fL (82-100); MONOCYTES # (AUTO) 0.6 /CMM (0.1-1.30); MONOCYTES % (AUTO) 6.9 % (2.0-12.0); NEUTROPHILS # (AUTO) 6.4 /CMM (1.8-8.9); NEUTROPHILS % (AUTO) 79.6 % (43.0-81.0); PLATELET COUNT (AUTO) 367 /CMM (150-450); RED BLOOD CELL COUNT(AUTO) 3.96 MIL/uL (4.0-5.2)
[2018-10-11 16:00] VITALS: BP 139/68
--- NOTE | 2018-10-11 18:48 | NUR ---
RN MS CLOSING NOTES Patient to be transferred to [place] [facility], patient in room air, no distress noted. Patients vital sign stable, patient has all the paperworks necessary, signed and has no questions or concerns about the discharge/transfer plan. Patients belonging with her. Signed the valuable form as well. Patient is going to [place] with a Right hand #20 gauge. [place] stated that they will be using the same line.
== END 2018-10-11 18:53 | DRG 981 ==
LOC: ER 09:55 → TELE 11:48 → MED 16:50
PROVIDERS: ADMIT Nurse Practitioner Acute Care; ATTEND Internal Medicine
PROC: 30233P1 Transfusion of Nonautologous Frozen Red Cells into Peripheral Vein, Percutaneous Approach (ICD-10-PCS; 2018-10-05)
PROC: 0SRR0JZ Replacement of Right Hip Joint, Femoral Surface with Synthetic Substitute, Open Approach (ICD-10-PCS; principal; 2018-10-06)
PROC: 0DB68ZX Excision of Stomach, Via Natural or Artificial Opening Endoscopic, Diagnostic (ICD-10-PCS; 2018-10-08)
PROC: 0DB48ZX Excision of Esophagogastric Junction, Via Natural or Artificial Opening Endoscopic, Diagnostic (ICD-10-PCS; 2018-10-08)
PROC: 0DBP8ZX Excision of Rectum, Via Natural or Artificial Opening Endoscopic, Diagnostic (ICD-10-PCS; 2018-10-11)
DX: C20 Malignant neoplasm of rectum (principal); S72.011A Unspecified intracapsular fracture of right femur, initial encounter for closed fracture; A04.72 Enterocolitis due to Clostridium difficile, not specified as recurrent; D50.9 Iron deficiency anemia, unspecified; I10 Essential (primary) hypertension; R73.9 Hyperglycemia, unspecified; W18.30XA Fall on same level, unspecified, initial encounter; Y92.128 Other place in nursing home as the place of occurrence of the external cause; D47.3 Essential (hemorrhagic) thrombocythemia; D72.829 Elevated white blood cell count, unspecified; K44.9 Diaphragmatic hernia without obstruction or gangrene; K20.9 Esophagitis, unspecified
CPT/HCPCS: 36415; 71045-TC; 71260-TC; 73502; 74246-TC; 76705-TC; 76856-TC; 80048-TC; 80053-TC; 80061-TC; 81000-TC; 82105; 82272-TC; 82378; 82728-TC; 83540-TC; 83735-TC; 84100-TC; 84443-TC; 85025-TC; 85027-TC; 85610-TC; 85730-TC; 86301; 86706; 86803; 86850-TC; 86921-TC; 87081-TC; 87086-TC; 87340; 88305-TC; 88311-TC; 88313-TC; 93307-TC; 97110-TC; 97116-TC; 97530-TC; A4216; A4217; A6209; A6402; C9113; G0378; J0690; J2250; J2270; J2405; J2704; J2710; J2916; J3010; J3490; J7030; J7050; J7060; P9016-BL; Q9963; Q9967

== ENCOUNTER 2019-02-16 10:33 | Outpatient (CLI) | payer MEDICARE | END 2019-02-16 23:59 | disposition home or self-care (01) | LOC: RAD 10:33 | PROVIDERS: ATTEND Internal Medicine Hematology & Oncology | DX: C20 Malignant neoplasm of rectum (principal) | CPT/HCPCS: 71045-TC ==